=== PATIENT | male | born 1960 | race Caucasian/White ===

== ENCOUNTER 2016-10-14 17:46 | Emergency (ER) | payer BC ==
--- NOTE | ~2016-10-14 | EKG ---
PATIENT: TERRANCE TRUJILLO UNIT #: [id number] Ventricular Rate: 59 BPM Atrial Rate: 59 BPM P-R Interval: 178 ms QRS Duration: 78 ms Q-T Interval: 420 ms QTC Calculation(Bezet): 415 ms P [place]: 37 degrees Calculated R [place]: 0 degrees Calculated T [place]: 46 degrees Diagnosis Line: Sinus bradycardia Diagnosis Line: Otherwise normal ECG Diagnosis Line: When compared with ECG of 11-SEP-2014 18:48, Diagnosis Line: Nonspecific T wave abnormality, improved in Diagnosis Line: Lateral leads Diagnosis Line: Confirmed by KIMBERLEE DAY MD ([id number]) on Diagnosis Line: 10/18/2016 9:34:53 PM INTERPRETING MD: SHAY CRAFT
[2016-10-14] MEDS ORDERED: TOPROL XL PO (18:02)
[2016-10-14] MEDS ORDERED: PLAQUENIL PO (18:02)
[2016-10-14] MEDS ORDERED: ASPIRIN PO (18:03)
[2016-10-14] MEDS ORDERED: WELLBUTRIN XL PO (18:03)
[2016-10-14] MEDS ORDERED: EXFORGE HCT PO (18:03)
[2016-10-14] MEDS ORDERED: ZYRTEC PO (18:03)
[2016-10-14] MEDS ORDERED: PRAVASTATIN PO (18:04)
[2016-10-14 18:30] LABS: BASOPHIL# 0.1 X10e3 (0-0.3); EOSINOPHIL# 0.1 X10e3 (0-0.7); EOSINOPHIL% 1.7 % (0.0-7.0); HEMATOCRIT 38.8 % (38.0-50.0); HEMOGLOBIN 13.1 gm/dL (13.0-16.0); LYMPHOCYTE# 1.6 X10e3 (1.0-3.5); MEAN CELL VOLUME 87.1 FL (83-96); MEAN CORPUSCULAR HEMOGLOBIN 29.4 PG (28-34); MEAN CORPUSCULAR HGB CONC 33.8 g/dL (30-36); MEAN PLATELET VOLUME 8.3 FL (6.5-11.5); MONOCYTE# 0.8 X10e3 (0-1.0); MONOCYTE% 11.2 % (3.0-12.0); NEUTROPHIL# 4.6 X10e3 (1.5-7.1); NEUTROPHIL% 64.1 % (40-75); PLATELET COUNT 254 X10e3 (140-420); RED BLOOD COUNT 4.46 X10e (3.90-5.60); RED CELL DISTRIBUTION WIDTH 13.9 % (11.0-15.5); WHITE BLOOD COUNT 7.1 X10e3 (4.0-10.5)
[2016-10-14 18:32] LABS: POC - CKMB 1.2 ng/mL (0.0-7.9); POC - TROPONIN <0.05 ng/mL (<=0.05)
[2016-10-14 18:33] LABS: DIFF IND NO
[2016-10-14 18:35] LABS: INR 1.1; PROTHROMBIN TIME (PATIENT) 12.9 SECONDS (9.5-12.4)
[2016-10-14 18:42] LABS: PARTIAL THROMBOPLASTIN TIME 26.8 SECONDS (25.6-38.1)
[2016-10-14 18:44] LABS: ALBUMIN SERUM 4.2 g/dL (3.5-5.0); BILIRUBIN, DIRECT 0.1 mg/dL (0.0-0.2); BILIRUBIN,INDIRECT 0.5 mg/dL (0.0-0.9); BILIRUBIN,TOTAL 0.6 mg/dL (0.2-2.0); BUN/CREATININE RATIO 12.5; CREATININE SERUM 1.6 mg/dL (0.6-1.4); GLOM FILT RATE Estimated 47.1 mL/min (>60); PROTEIN TOTAL SERUM 7.3 g/dL (6.0-8.3)
== END 2016-10-14 19:24 | disposition home or self-care (01) ==
LOC: SED 17:46
PROVIDERS: Emergency Medicine
DX: R06.02 Shortness of breath (principal); E87.5 Hyperkalemia; E78.5 Hyperlipidemia, unspecified; J44.9 Chronic obstructive pulmonary disease, unspecified
CPT/HCPCS: 36415; 80048; 80076; 82553; 83880; 84484; 85025; 85379; 85610; 85730; 93005; 99284

== ENCOUNTER → 2016-10-14 | Outpatient (CLI) | payer BC ==
[~2016-10-14] MED LIST: ASPIRIN PO; EXFORGE HCT PO; PLAQUENIL PO; PRAVASTATIN PO; TOPROL XL PO; WELLBUTRIN XL PO; ZYRTEC PO
--- NOTE | ~2016-10-14 | CR63 ---
[facility]. [facility] A Service of [facility] & [facility] RADIOLOGY TEXT RESULTS PATIENT: TERRANCE TRUJILLO LOCATION: [facility] : 58 UNIT #: [id number] AGE: [address]: YVETTE CASTRO APRN SEX: M ORDER DR: [id number] [address] [address] [id number] O MR#: [id number] Acc #: [id number] NAME: TERRANCE TRUJILLO. : 1960 SEX: M STUDY DATE/TIME: 10/14/2016 16:08 UNIT: [facility] ROOM: STUDY DESCRIPTION: CR Chest 2 View Attending Physician: Yvette Castro Aprn Ordering Physician: Yvette Castro Aprn Primary Care Physician: Jessica Galvan A.P.R.N. MEDICAL IMAGING REPORT This report is preliminary unless electronic signature is present. EXAM Chest PA and lateral 10/14/2016 HISTORY Shortness of breath for 1 week. Benign essential hypertension, COPD exacerbation. Smoking history for 30 years. FINDINGS The heart is top normal in size. The lungs are clear. There are no pleural effusions. IMPRESSION No active pulmonary disease Dictated by... Jacek Vazquez M.D. THIS IS AN ELECTRONICALLY VERIFIED REPORT Jacek Vazquez M.D. at 10/15/2016 8:08 AM EDWIN/austin TD: 10/14/2016 19:39 JOB #: [id number] MEDICAL IMAGING REPORT Page 1 of 1
== END | disposition home or self-care (01) ==
LOC: SRAD 16:01
DX: R06.02 Shortness of breath (principal)
CPT/HCPCS: 71020

== ENCOUNTER → 2016-12-27 | Outpatient (CLI) | payer BC ==
--- NOTE | ~2016-12-27 | CR170 ---
[facility]. [facility] A Service of [facility] & [facility] RADIOLOGY TEXT RESULTS PATIENT: TERRANCE TRUJILLO LOCATION: [facility] : 58 UNIT #: [id number] AGE: [address]: Vani Grande MD SEX: M ORDER DR: [id number] [place] [id number] O MR#: [id number] Acc #: [id number] NAME: TERRANCE TRUJILLO : 1960 SEX: M STUDY DATE/TIME: 12/27/2016 13:03 UNIT: [facility] ROOM: STUDY DESCRIPTION: CR Knee 2 Views Rt Attending Physician: Vani Grande M.D. Referring Physician: Vani Grande M.D. Ordering Physician: Vani Grande M.D. Primary Care Physician: Jessica Galvan A.P.R.N. MEDICAL IMAGING REPORT This report is preliminary unless electronic signature is present. EXAM Right knee 2 views 12/27/2016. HISTORY Right knee pain, joint pain for 6 months, lupus. No known injury. FINDINGS AP and lateral projection of the knee shows smooth articular anatomy without indication of fracture or dislocation at the major weight-bearing surface of the knee. There is no indication of radiopaque foreign body about the knee surface or joint effusion. IMPRESSION Normal knee. Dictated by... Jacek Vazquez M.D. THIS IS AN ELECTRONICALLY VERIFIED REPORT Jacek Vazquez M.D. at 12/29/2016 2:36 PM KRT/bean TD: 12/28/2016 14:23 JOB #: [id number] MEDICAL IMAGING REPORT Page 1 of 1
--- NOTE | ~2016-12-27 | CR151 ---
[facility] [place] A Service of [facility] & [facility] RADIOLOGY TEXT RESULTS PATIENT: TERRANCE TRUJILLO LOCATION: [facility] : 58 UNIT #: [id number] AGE: [address]: Vani Grande MD SEX: M ORDER DR: [id number] [place] [id number] O MR#: [id number] Acc #: [id number] NAME: TERRANCE TRUJILLO : 1960 SEX: M STUDY DATE/TIME: 12/27/2016 13:03 UNIT: [facility] ROOM: STUDY DESCRIPTION: CR Hip Min 2 Views Rt Attending Physician: Vani Grande M.D. Referring Physician: Vani Grande M.D. Ordering Physician: Vani Grande M.D. Primary Care Physician: Jessica Galvan A.P.R.N. MEDICAL IMAGING REPORT This report is preliminary unless electronic signature is present. EXAM Right hip, 2 views, 12/27/2016. HISTORY Right hip pain for 6 months. No known injury. Lupus. FINDINGS AP and oblique examination of the hip shows adequate mineralization of the bones and a normal anatomic relationship of the femoral head with the acetabulum. There are no hypertrophic changes, fractures, dislocation, or joint capsular distension. No radiopaque foreign body is present about the soft tissues of the hip. IMPRESSION Normal hip. Dictated by... Jacek Vazquez M.D. THIS IS AN ELECTRONICALLY VERIFIED REPORT Jacek Vazquez M.D. at 12/29/2016 2:36 PM EDWIN/veronica TD: 12/28/2016 14:21 JOB #: [id number] MEDICAL IMAGING REPORT Page 1 of 1
--- NOTE | ~2016-12-27 | CR150 ---
[facility]. [facility] A Service of [facility] & [facility] RADIOLOGY TEXT RESULTS PATIENT: TERRANCE TRUJILLO LOCATION: [facility] : 58 UNIT #: [id number] AGE: [address]: Vani Grande MD SEX: M ORDER DR: [id number] [place] [id number] O MR#: [id number] Acc #: [id number] NAME: TERRANCE TRUJILLO : 1960 SEX: M STUDY DATE/TIME: 12/27/2016 13:03 UNIT: [facility] ROOM: STUDY DESCRIPTION: CR Hip Min 2 Views Lt Attending Physician: Vani Grande M.D. Referring Physician: Vani Grande M.D. Ordering Physician: Vani Grande M.D. Primary Care Physician: Jessica Galvan A.P.R.N. MEDICAL IMAGING REPORT This report is preliminary unless electronic signature is present. EXAM Left hip 2 views 12/27/2016 HISTORY Left hip pain for 6 months. Lupus. No known injury. FINDINGS AP and oblique examination of the hip shows adequate mineralization of the bones and a normal anatomic relationship of the femoral head with the acetabulum. There are no hypertrophic changes, fractures, dislocation, or joint capsular distension. No radiopaque foreign body is present about the soft tissues of the hip. IMPRESSION Normal hip. Dictated by... Jacek Vazquez M.D. THIS IS AN ELECTRONICALLY VERIFIED REPORT Jacek Vazquez M.D. at 12/29/2016 2:36 PM EDWIN/austin TD: 12/28/2016 14:33 JOB #: [id number] MEDICAL IMAGING REPORT Page 1 of 1
--- NOTE | ~2016-12-27 | CR169 ---
[facility]. [facility] A Service of [facility] & [facility] RADIOLOGY TEXT RESULTS PATIENT: TERRANCE TRUJILLO LOCATION: [facility] : 58 UNIT #: [id number] AGE: [address]: Vani Grande MD SEX: M ORDER DR: [id number] [place] [id number] O MR#: [id number] Acc #: [id number] NAME: TERRANCE TRUJILLO : 1960 SEX: M STUDY DATE/TIME: 12/27/2016 13:03 UNIT: [facility] ROOM: STUDY DESCRIPTION: CR Knee 2 Views Lt Attending Physician: Vani Grande M.D. Referring Physician: Vani Grande M.D. Ordering Physician: Vani Grande M.D. Primary Care Physician: Jessica Galvan A.P.R.N. MEDICAL IMAGING REPORT This report is preliminary unless electronic signature is present. EXAM Left knee, 2 views, 12/27/2016. HISTORY Left knee pain for 6 months. No known injury. History of lupus. FINDINGS AP and lateral projection of the knee shows smooth articular anatomy without indication of fracture or dislocation at the major weight-bearing surface of the knee. There is no indication of radiopaque foreign body about the knee surface or joint effusion. IMPRESSION Normal knee. Dictated by... Jacek Vazquez M.D. THIS IS AN ELECTRONICALLY VERIFIED REPORT Jacek Vazquez M.D. at 12/29/2016 2:36 PM EDWIN/veronica TD: 12/28/2016 14:23 JOB #: [id number] MEDICAL IMAGING REPORT Page 1 of 1
== END | disposition home or self-care (01) ==
LOC: SRAD 12:50
DX: L93.0 Discoid lupus erythematosus (principal); M54.5 Low back pain; R76.0 Raised antibody titer
CPT/HCPCS: 73502; 73560